=== PATIENT | female | born 1980 | race Caucasian/White ===

== ENCOUNTER 2020-09-23 11:45 | Emergency (ER) | payer OTHER ==
[~2020-09-23] VITALS: Ht 170.2 cm; Wt 104.3 kg
[2020-09-23] MEDS ORDERED: BUSPIRONE HCL10 MG PO (11:53)
[2020-09-23] MEDS ORDERED: CELEXA 20 MG TA20 MG PO (11:53)
[2020-09-23] MEDS ORDERED: ALLEGRA ALLERG180 MG PO (11:53)
[2020-09-23] MEDS ORDERED: PROVIGIL 100 M100 MG PO (11:54)
[2020-09-23 12:23] LABS: ABSOLUTE LYMPHOCYTES 1.4 thou/uL (0.8-5.3); ABSOLUTE MONOCYTES 0.4 thou/uL (0.0-1.2); ABSOLUTE NEUTROPHILS 3.5 thou/uL (1.6-8.1); BASOPHILS 0.6 %; EOSINOPHILS 0.7 %; HEMATOCRIT 37.6 % (37.0-47.0); HEMOGLOBIN 12.9 gm/dL (12.0-15.0); LYMPHOCYTES 26.1 %; MCH 31.2 pg (26.0-34.0); MCHC 34.2 g/dL (28.0-37.0); MCV 91.4 fL (80.0-100.0); MONOCYTES 6.9 %; MPV 7.8 fl. (7.2-11.1); NUCLEATED RBCS 0 /100WBC; PLATELET COUNT* 224 thou/uL (150-400); POLYS 65.7 %; RBC 4.12 mil/uL (4.20-5.00); RDW-CV 13.8 % (10.5-14.5); WBC 5.4 thou/uL (4.0-11.0)
[2020-09-23 12:33] LABS: ANION GAP 8 mmol/L (7-16); BUN 22 mg/dL (7-18); CALCIUM 8.5 mg/dL (8.5-10.1); CHLORIDE 107 mmol/L (98-107); CO2 25 mmol/L (21-32); CREATININE 0.7 mg/dL (0.6-1.3); GLUCOSE 103 mg/dL (70-99); POTASSIUM 3.4 mmol/L (3.5-5.1); SODIUM 140 mmol/L (136-145)
[2020-09-23 12:45] LABS: ALBUMIN 3.7 g/dL (3.4-5.0); ALKALINE PHOSPHATASE 54 U/L (46-116); CK-MB MASS < 0.5 ng/mL (<0.5-3.6); LIPASE 121 U/L (73-393); NT-PRO BRAIN NAT PEPTIDE 112 pg/mL (<300); SGOT 10 U/L (15-37); SGPT 8 U/L (30-65); TOTAL BILIRUBIN 0.3 mg/dL (<0.1-1.0); TOTAL PROTEIN 6.9 g/dL (6.4-8.2)
[2020-09-23] MEDS ORDERED: HYDROCODON-ACE1 EAC7 PO (13:33)
[2020-09-23 13:40] VITALS: BP 119/64
--- NOTE | 2020-09-23 16:48 | EKG ---
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
== END 2020-09-23 13:41 | disposition home or self-care (01) ==
LOC: M.ERS 11:45
PROVIDERS: Family Medicine
DX: R07.89 Other chest pain (principal); Z86.711 Personal history of pulmonary embolism; Z79.899 Other long term (current) drug therapy